=== PATIENT | male | born 1965 | race Caucasian/White ===

== ENCOUNTER 2017-10-28 09:17 | Emergency (ER) | payer OTHER ==
[2017-10-28 09:26] VITALS: BP 134/77; PULSE 93; RESP 17; TEMP 97.4
[2017-10-28] MEDS ORDERED: PROPARACAINE 0.5% OPHTH DROPS 15 ML BTL BOTH EYES STA (09:35)
[2017-10-28] MEDS ORDERED: TOBRAMYCIN 0.3% OPHTH OINT 3.5 GM TUBE BOTH EYES STA (09:42)
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
== END 2017-10-28 10:08 | disposition home or self-care (01) ==
LOC: EC 09:17
DX: H10.89 Other conjunctivitis (principal); F17.200 Nicotine dependence, unspecified, uncomplicated; Z88.0 Allergy status to penicillin
CPT/HCPCS: 99282

== ENCOUNTER 2021-03-03 | Emergency (ER) | payer OTHER ==
--- NOTE | 2021-03-03 20:06 | ED ---
Abdominal Pain HPI - General Chief Complaint: Abdominal Pain Stated Complaint: poss hernia Time Seen by Provider: 03/03/21 19:08 Source: patient Mode of arrival: ambulatory Limitations: no limitations - History of Present Illness Initial Comments: Patient is a 86-year-old male presenting to the emergency Department with complaints of a possible hernia. Patient states his granddaughter was playing with his belly today when he noticed a bulge in his umbilical area. She states it is painful when he pushes on it. He was concerned for possible hernia. He states he just noticed this a few hours prior to arrival. He denies any other abdominal pain, no nausea or vomiting, no fevers or chills. He denies any abdominal surgeries in the past. He states it does seem to go back and when he pushes on it. He has no further complaints at this time. - Related Data Home Medications Medication Instructions Recorded Confirmed Acetaminophen/Pamabrom [Midol 1 tab PO DAILY PRN 03/03/21 03/03/21 Caplet] Allergies Allergy/AdvReac Type Severity Reaction Status Date / Time Penicillins Allergy Rash/Hives Verified 03/03/21 19:51 Review of Systems ROS Statement: Those systems with pertinent positive or pertinent negative responses have been documented in the HPI. ROS Other: All systems not noted in ROS Statement are negative. Past Medical History Past Medical History: No Reported History Additional Past Medical History / Comment(s): chronic pain History of Any Multi-Drug Resistant Organisms: None Reported Past Surgical History: No Surgical Hx Reported Additional Past Surgical History / Comment(s): multiple, pt will not list Past Psychological History: No Psychological Hx Reported Smoking Status: Current every day smoker Past Alcohol Use History: None Reported Past Drug Use History: None Reported General Exam - General Exam Comments Initial Comments: GENERAL: Patient is well-developed and well-nourished. Patient is nontoxic and in no acute distress. HEAD: Atraumatic, normocephalic. EYES: Pupils equal round and reactive to light, extraocular movements intact, sclera anicteric, conjunctiva are normal. Eyelids were unremarkable. ENT: TMs normal, nares patent, oropharynx clear without exudates. Moist mucous membranes. NECK: Normal range of motion, supple without lymphadenopathy or JVD. LUNGS: Unlabored respirations. Breath sounds clear to auscultation bilaterally and equal. No wheezes rales or rhonchi. HEART: Regular rate and rhythm without murmurs, rubs or gallops. ABDOMEN: Soft, nontender, normoactive bowel sounds. No guarding, no rebound. No masses appreciated. Patient does seem to have a very small umbilical hernia, it is easily reducible. Some mild pain when it is reduced, no other abdominal pain. : Deferred MUSCULOSKELETAL: Normal extremities with adequate strength and normal range of motion, no pitting or edema. No clubbing or cyanosis. NEUROLOGICAL: Patient is alert and oriented x 3. Motor and sensory are also intact. Cranial nerves II through XII grossly intact. Symmetrical smile. Normal speech, normal gait. PSYCH: Normal mood, normal affect. SKIN: Warm, Dry, normal turgor, no rashes or lesions noted. Limitations: no limitations Course Vital Signs 03/03/21 18:43 Temperature 97.8 F Pulse Rate 85 Respiratory 18 Rate Blood Pressure 132/84 O2 Sat by Pulse 96 Oximetry Medical Decision Making - Medical Decision Making Patient is a 56-year-old male presenting with a very small umbilical hernia. He noticed it today. It is easily reducible, no other abdominal pain, no fevers or chills. I discussed with patient that this is a small umbilical hernia, we'll give him surgical consult. He is stable for discharge. Return parameters were discussed with the patient he verbalizes understanding. Case discussed with Dr. Merida. Disposition Clinical Impression: Umbilical hernia Disposition: HOME SELF-CARE Condition: Stable Instructions (If sedation given, give patient instructions): Umbilical Hernia (ED) Additional Instructions: Please return to the Emergency Department if symptoms worsen or any other concerns. Recommend following up with surgeon as discussed. Is patient prescribed a controlled substance at d/c from ED?: No Referrals: Ofe Hendrickson MD [Primary Care Provider] - 1-2 days Duglas Palma MD [STAFF PHYSICIAN] - 1-2 days Time of Disposition: 20:06
== END 2021-03-03 20:35 | disposition home or self-care (01) ==
CPT/HCPCS: 99283

== ENCOUNTER 2023-01-21 19:22 | Emergency (ER) | payer OTHER ==
[2023-01-21] MEDS ORDERED: ACETAMINOPHEN TAB 500 MG TAB PO STA (19:41)
--- NOTE | 2023-01-21 20:02 | XR ---
EXAMINATION TYPE: XR forearm RT DATE OF EXAM: 01/21/2023 COMPARISON: NONE HISTORY: Pain Two views of the forearm demonstrate that the osseous structures appear to be intact and the joint sp aces appear to be preserved. There is no acute fracture or dislocation. IMPRESSION: 1. No acute fracture or dislocation
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
[2023-01-21 20:50] VITALS: BP 149/83; PULSE 85; RESP 14; TEMP 97.9
== END 2023-01-21 20:54 | disposition home or self-care (01) ==
LOC: EC 19:22
DX: S00.83XA Contusion of other part of head, initial encounter (principal); S50.11XA Contusion of right forearm, initial encounter; F17.200 Nicotine dependence, unspecified, uncomplicated; Z88.0 Allergy status to penicillin; Y04.8XXA Assault by other bodily force, initial encounter
CPT/HCPCS: 70450; 70486; 72125; 99284

== ENCOUNTER 2024-01-17 10:30 | Emergency (ER) | payer OTHER ==
[2024-01-17 10:44] VITALS: RESP 16
--- NOTE | 2024-01-17 10:50 | ED ---
Upper Extremity HPI - General Chief Complaint: Extremity Injury, Upper Stated Complaint: shoulder pain Time Seen by Provider: 01/17/24 10:46 Source: patient, family, RN notes reviewed Mode of arrival: ambulatory Limitations: no limitations - History of Present Illness Initial Comments: Patient is a 58-year-old male presenting to the ER with chief complaint of bilateral shoulder pain. Patient states 10 years ago he had a cortisone injection into his left shoulder which helped with the pain. He states he is unable to follow-up with As they have a wait list of 3 months. He reports for the past 3 months he has been having increase in left shoulder pain with radiation to the right. Denies any known injuries. He does state he pushes a broom at work which is a repetitive motion which makes the pain worse. Denies any radiation of pain down his arm, paresthesias, weakness. He states he is having difficulty opening up his truck door due to the pain. He has been taking [id number] ibuprofen with mild relief. Denies any neck pain, fevers, chills, shortness of breath, chest pain, abdominal pain, peripheral edema. - Related Data Home Medications Medication Instructions Recorded Confirmed Acetaminophen/Pamabrom [Midol 1 tab PO DAILY PRN 03/03/21 03/03/21 Caplet] Previous Rx's Medication Instructions Recorded Ibuprofen [Motrin] 600 mg PO Q8HR PRN #30 tab 01/21/23 predniSONE 50 mg PO DAILY #5 tab 01/17/24 Allergies Allergy/AdvReac Type Severity Reaction Status Date / Time Penicillins Allergy Rash/Hives Verified 01/21/23 19:31 Review of Systems ROS Statement: Those systems with pertinent positive or pertinent negative responses have been documented in the HPI. ROS Other: All systems not noted in ROS Statement are negative. Past Medical History Past Medical History: No Reported History Additional Past Medical History / Comment(s): chronic pain History of Any Multi-Drug Resistant Organisms: None Reported Past Surgical History: No Surgical Hx Reported Additional Past Surgical History / Comment(s): multiple, pt will not list Past Psychological History: No Psychological Hx Reported Smoking Status: Current every day smoker Past Alcohol Use History: None Reported Past Drug Use History: None Reported General Exam Limitations: no limitations General appearance: alert, in no apparent distress Head exam: Present: atraumatic, normocephalic, normal inspection Eye exam: Present: normal appearance, PERRL, EOMI. Absent: scleral icterus, conjunctival injection, periorbital swelling Neck exam: Present: normal inspection. Absent: tenderness, meningismus, lymphadenopathy Respiratory exam: Present: normal lung sounds bilaterally. Absent: respiratory distress, wheezes, rales, rhonchi, stridor Cardiovascular Exam: Present: regular rate, normal rhythm, normal heart sounds. Absent: systolic murmur, diastolic murmur, rubs, gallop, clicks Extremities exam: Present: tenderness (no focal bony tenderness. tenderness to deltoid muscle), other (Limited passive left shoulder flexion to 45 degrees. Right shoulder passive flexion 90 degrees. 2+ radial pulse bilaterally. senation intact equal residential assistant strength.) Neurological exam: Present: alert, oriented X3, CN II-XII intact Psychiatric exam: Present: normal affect, normal mood Skin exam: Present: warm, dry, intact, normal color. Absent: rash Course Vital Signs 01/17/24 10:32 Temperature 97.9 F Pulse Rate 78 Respiratory 16 Rate Blood Pressure 150/83 O2 Sat by Pulse 98 Oximetry Medical Decision Making - Medical Decision Making Was pt. sent in by a medical professional or institution (, PA, MUSICIAN INSTRUMENTAL, urgent care, hospital, or half-way...) When possible be specific @ -No Did you speak to anyone other than the patient for history (EMS, parent, family, police, friend...)? What history was obtained from this source @ -No Did you review nursing and triage notes (agree or disagree)? Why? @ -I reviewed and agree with nursing and triage notes Were old charts reviewed (outside hosp., previous admission, EMS record, old EKG, old radiological studies, urgent care reports/EKG's, half-way records)? Report findings @ -No old charts were reviewed Differential Diagnosis (chest pain, altered mental status, abdominal pain women, abdominal pain men, vaginal bleeding, weakness, fever, dyspnea, syncope, headache, dizziness, GI bleed, back pain, seizure, CVA, palpatations, mental health, musculoskeletal)? @ -Differential Musculoskeletal: Muscular strain, contusion, ligament sprain, fracture, arthritis, septic arthritis, bursitis, cellulitis, muscle spasm, nerve compression, DVT, arterial occlusion, herpes zoster, electrolyte abnormality, tumor.... This is not meant to be in all inclusive list EKG interpreted by me (3pts min.). @ -None X-rays interpreted by me (1pt min.). @ -Bilateral shoulder x-rays interpreted by me negative for acute osseous process. CT interpreted by me (1pt min.). @ -None done U/S interpreted by me (1pt. min.). @ -None done What testing was considered but not performed or refused? (CT, X-rays, U/S, labs)? Why? @ -None What meds were considered but not given or refused? Why? @ -None Did you discuss the management of the patient with other professionals (professionals i.e. Dr., PA, MUSICIAN INSTRUMENTAL, lab, RT, psych nurse, perinatal social worker, battery wrecker operator, teacher, finance officer, immigration case manager)? Give summary @ -No Was smoking cessation discussed for >3mins.? @ -No Was critical care preformed (if so, how long)? @ -No Were there social determinants of health that impacted care today? How? (Homelessness, low income, unemployed, alcoholism, drug addiction, transportation, low edu. Level, literacy, decrease access to med. care, assisted, rehab)? @ -No Was there de-escalation of care discussed even if they declined (Discuss DNR or withdrawal of care, Hospice)? DNR status @ -No What co-morbidities impacted this encounter? (DM, HTN, Smoking, COPD, CAD, Cancer, CVA, ARF, Chemo, Hep., AIDS, mental health diagnosis, sleep apnea, morbid obesity)? @ -None Was patient admitted / discharged? Hospital course, mention meds given and route, prescriptions, significant lab abnormalities, going to OR and other pertinent info. @ -Discharge. Patient is a 58-year-old male presented to the ER with chief complaint of bilateral shoulder pain. History and physical exam completed. Vitals stable. Patient no signs of acute distress and nontoxic-appearing. Bilateral upper extremities neurovascularly intact. Limited passive range of motion of bilateral shoulders. X-rays obtained negative for acute process. Results discussed with patient, all questions answered. Advise close follow-up with orthopedics. Referral given. Prednisone prescribed. Advise continue motion of shoulders as tolerated. Return parameters discussed. Patient discharged in stable condition follow-up PCP/orthopedics. Patient verbally expressed understanding and agreement with care plan. Case discussed with ED attending, Dr. Clement. Undiagnosed new problem with uncertain prognosis? @ -No Drug Therapy requiring intensive monitoring for toxicity (Heparin, Nitro, Insulin, Cardizem)? @ -No Were any procedures done? @ -No Diagnosis/symptom? @ -Adhesive capsulitis Acute, or Chronic, or Acute on Chronic? @ -Acute Uncomplicated (without systemic symptoms) or Complicated (systemic symptoms)? @ -Uncomplicated Side effects of treatment? @ -No Exacerbation, Progression, or Severe Exacerbation? @ -No Poses a threat to life or bodily function? How? (Chest pain, [place], [place], pneumonia, PE, COPD, DKA, ARF, appy, cholecystitis, CVA, Diverticulitis, Homicidal, Suicidal, threat to staff... and all critical care pts) @ -No - Radiology Data Radiology results: report reviewed, image reviewed Disposition Clinical Impression: Adhesive capsulitis Disposition: HOME SELF-CARE Condition: Stable Instructions (If sedation given, give patient instructions): Adhesive Capsulitis (ED) Additional Instructions: Please follow-up with orthopedics. Continue movement as tolerated. May take [id number] Tylenol and Motrin for symptom control. Return to the ER for any new or worsening concerns. Prescriptions: predniSONE 50 mg PO DAILY #5 tab Is patient prescribed a controlled substance at d/c from ED?: No Referrals: Ofe Hendrickson MD [Primary Care Provider] - 1-2 days Prasad Ramon DO [Doctor of Osteopathic Medicine] - 1-2 days Time of Disposition: 11:35
--- NOTE | 2024-01-17 11:25 | XR ---
EXAMINATION TYPE: XR shoulder complete BILAT DATE OF EXAM: 01/17/2024 11:08 AM CLINICAL INDICATION:Male, 58 years old with history of pain; COMPARISON: None TECHNIQUE: XR shoulder complete BILAT; examined in AP, internally rotated and scapular Y projections. FINDINGS: No evidence of acute osseous pathology, joint dislocation, or soft tissue swelling. The remaining po rtions of the visualized chest are unremarkable. Minimal degeneration changes of the acromion, dista l clavicle with osteophyte formation bilaterally. There is osteophyte formation of the glenoid and hu meral head. There is joint space narrowing of glenohumeral joint IMPRESSION: No acute osseous pathology. Minimal osteoporosis changes of the shoulders.
[2024-01-17 12:07] VITALS: BP 142/86; PULSE 71; TEMP 98
== END 2024-01-17 11:52 | disposition home or self-care (01) ==
LOC: EC 10:30
DX: M75.02 Adhesive capsulitis of left shoulder (principal); M75.01 Adhesive capsulitis of right shoulder; F17.200 Nicotine dependence, unspecified, uncomplicated; Z88.0 Allergy status to penicillin
CPT/HCPCS: 99283

== ENCOUNTER 2024-07-17 18:15 | Emergency (ER) | payer OTHER ==
[2024-07-17] MEDS: BENZOCAINE SPRAY 1 CAN MUCOUS MEM STA (19:35)
[2024-07-17] MEDS: LIDOCAINE VISCOUS 2% 15 ML CUP MUCOUS MEM ONE (19:35)
[2024-07-17] MEDS: LIDOCAINE 1%-EPI 1:100,000 20 ML VIAL SQ STA (19:35)
[2024-07-17 20:22] LABS: Basophils # (A) 0.1 k/uL (0-0.2); Basophils % (A) 1 %; Eosinophils # (A) 0.2 k/uL (0-0.7); Eosinophils % (A) 2 %; HCT 45.2 % (39.0-53.0); HGB 14.6 gm/dL (13.0-17.5); Lymphocytes # (A) 3.7 k/uL (1.0-4.8); Lymphocytes % (A) 46 %; MCHC 32.4 g/dL (31.0-37.0); MCV 95.7 fL (80.0-100.0); Mean Platelet Volume 6.8; Monocytes # (A) 0.4 k/uL (0-1.0); Monocytes % (A) 6 %; Neutrophils # (A) 3.5 k/uL (1.3-7.7); Neutrophils % (A) 43 %; Platelet Count 377 k/uL (150-450); RBC 4.72 m/uL (4.30-5.90); RDW 12.3 % (11.5-15.5); WBC 8.1 k/uL (3.8-10.6)
--- NOTE | 2024-07-17 20:37 | CT ---
EXAMINATION TYPE: CT soft tissue neck w con DATE OF EXAM: 07/17/2024 COMPARISON: 01/21/2023 HISTORY: RT TONSIL MASS CT DLP: 260.3 mGycm CONTRAST: Patient injected with 100 ml mL of Isovue 370. TECHNIQUE: Axial images at 3 mm thick sections. Reconstructed images in the coronal plane and sagitt al plane are reviewed. FINDINGS: Limited CT sections are obtained the lung apices. Emphysematous changes are present. CT neck: The torus tubarius and fossa of Rosenmuller are normal. Foundry Molder spaces are normal. Ther e is opacification of the right maxillary sinus. There is a large left tonsillar mass estimated at 2.7 x 2.9 cm. Additional prominences to the right t onsillar pillar. Upper hypopharynx is filled. There may be some fluid collection in the right submandibular region. Blocked salivary duct can be co nsidered. Somewhat similar hypodensity is within the enlarged left submandibular gland. Parotid glands appear normal and symmetrical. Parapharyngeal spaces appear normal carotid sheath and jugulodigastric regions appear within normal limits. There are multiple small lymph nodes present mor e so on the left than the right No suspicious adenopathy is evident. Vocal cord level appear symmetrical. Thyroid as visualized is normal. Osseous structures are normal. IMPRESSION: 1. Large mass is predominantly within the left tonsillar pillar but also present on the right filling the hypopharynx and oropharynx. 2. Multiple bilateral small lymph nodes. Enlarged lymphadenopathy is not identified. [facility], Workstation: [facility], 07/17/2024 8:34 PM
[2024-07-17 20:38] LABS: ALT 13 U/L (4-49); AST 21 U/L (17-59); African American GFR (CKD) >90 (>60 ml/min/1.73 sqM); Albumin 4.2 g/dL (3.5-5.0); Alkaline Phosphatase 50 U/L (38-126); Anion Gap 7 mmol/L; Blood Urea Nitrogen 15 mg/dL (9-20); Calcium 9.6 mg/dL (8.4-10.2); Carbon Dioxide 22 mmol/L (22-30); Chloride 107 mmol/L (98-107); Glucose 92 mg/dL (74-99); Non-African American GFR(CKD) >90 (>60 ml/min/1.73 sqM); Potassium 4.4 mmol/L (3.5-5.1); Sodium 136 mmol/L (137-145); Total Bilirubin 0.9 mg/dL (0.2-1.3)
--- NOTE | 2024-07-17 21:04 | ED ---
ENT HPI - General Chief complaint: ENT Stated complaint: sore throat/swelling Time Seen by Provider: 07/17/24 18:30 Source: patient Mode of arrival: ambulatory Limitations: no limitations - History of Present Illness Initial comments: 59-year-old male presenting with chief complaint of painful mass to the throat. Patient over the last 5 days has had increasing irritation to a large left-sided mass at the back of her throat. He does have pain and difficulty with swallowing, he still able to drink water. He does report some increased difficulty breathing. His voice is muffled. He does have to spit out his secretions at times. He is a current every day smoker. No fever. - Related Data Home Medications Medication Instructions Recorded Confirmed Acetaminophen/Pamabrom [Midol 1 tab PO DAILY PRN 03/03/21 03/03/21 Caplet] Previous Rx's Medication Instructions Recorded Ibuprofen [Motrin] 600 mg PO Q8HR PRN #30 tab 01/21/23 predniSONE 50 mg PO DAILY #5 tab 01/17/24 Allergies Allergy/AdvReac Type Severity Reaction Status Date / Time Penicillins Allergy Rash/Hives Verified 01/21/23 19:31 Review of Systems ROS Statement: Those systems with pertinent positive or pertinent negative responses have been documented in the HPI. ROS Other: All systems not noted in ROS Statement are negative. Past Medical History Past Medical History: No Reported History Additional Past Medical History / Comment(s): chronic pain History of Any Multi-Drug Resistant Organisms: None Reported Past Surgical History: No Surgical Hx Reported Additional Past Surgical History / Comment(s): multiple, pt will not list Past Psychological History: No Psychological Hx Reported Smoking Status: Current every day smoker Past Alcohol Use History: None Reported Past Drug Use History: None Reported General Exam Limitations: no limitations General appearance: alert, in no apparent distress Head exam: Present: atraumatic, normocephalic, normal inspection Eye exam: Present: normal appearance, EOMI Expanded Throat exam: L peritonsillar mass Respiratory exam: Absent: respiratory distress, stridor Cardiovascular Exam: Present: regular rate Neurological exam: Present: alert, oriented X3, CN II-XII intact Psychiatric exam: Present: normal affect, normal mood Skin exam: Present: warm, dry Course Vital Signs 07/17/24 18:21 Temperature 97.9 F Pulse Rate 78 Respiratory 18 Rate Blood Pressure 144/82 O2 Sat by Pulse 98 Oximetry Medical Decision Making - Medical Decision Making Was pt. sent in by a medical professional or institution (, JULIO, SERVICE OR WORK DISPATCHER, urgent care, hospital, or senior living...) When possible be specific @ -No Did you speak to anyone other than the patient for history (EMS, parent, family, police, friend...)? What history was obtained from this source @ -No Did you review nursing and triage notes (agree or disagree)? Why? @ -I reviewed and agree with nursing and triage notes Were old charts reviewed (outside hosp., previous admission, EMS record, old EKG, old radiological studies, urgent care reports/EKG's, senior living records)? Report findings @ -No old charts were reviewed Differential Diagnosis (chest pain, altered mental status, abdominal pain women, abdominal pain men, vaginal bleeding, weakness, fever, dyspnea, syncope, headache, dizziness, GI bleed, back pain, seizure, CVA, palpatations, mental health, musculoskeletal)? @ -Differential includes peritonsillar abscess, tonsillar mass, this is not an all-inclusive list EKG interpreted by me (3pts min.). @ -As above X-rays interpreted by me (1pt min.). @ -None done CT interpreted by me (1pt min.). @ -Large mass is predominantly within the left tonsillar pillar but also present on the right filling the hypopharynx and oropharynx. Multiple bilateral small lymph nodes. Enlarged lymphadenopathy is not identified U/S interpreted by me (1pt. min.). @ -None done What testing was considered but not performed or refused? (CT, X-rays, U/S, labs)? Why? @ -None What meds were considered but not given or refused? Why? @ -None Did you discuss the management of the patient with other professionals (professionals i.e. , JULIO, SERVICE OR WORK DISPATCHER, lab, RT, psych nurse, social service assistant, account support associate, teacher, fare enforcement officer, case folder)? Give summary @ -I spoke with Dr. Perez who recommends transfer for expedited ENT workup I spoke with hospitalist Dr. Arias at [facility] for acceptance of transfer Was smoking cessation discussed for >3mins.? @ -No Was critical care preformed (if so, how long)? @ -No Were there social determinants of health that impacted care today? How? (Homelessness, low income, unemployed, alcoholism, drug addiction, transportation, low edu. Level, literacy, decrease access to med. care, long term, rehab)? @ -No Was there de-escalation of care discussed even if they declined (Discuss DNR or withdrawal of care, Hospice)? DNR status @ -No What co-morbidities impacted this encounter? (DM, HTN, Smoking, COPD, CAD, Cancer, CVA, ARF, Chemo, Hep., AIDS, mental health diagnosis, sleep apnea, morbid obesity)? @ -Smoking Was patient admitted / discharged? Hospital course, mention meds given and route, prescriptions, significant lab abnormalities, going to OR and other pertinent info. @ -59-year-old male presenting chief complaint of pain and difficulty swallowing. He has a large left-sided tonsillar mass. He is a daily smoker. On CT there is a large mass to the left tonsillar pillar extends into the hypopharynx and oropharynx. I spoke with ENT Dr. Perez. And he is in her area do not manage this condition and he believe that the patient needs an expedited workup, this may entail radiation with placement of a trach he belie ves that the patient should be transferred to [facility]. Spoke with [facility] accepts transfer. Patient was given Decadron 10 mg. CBC CMP are essentially unremarkable. Patient is educated on today's findings and treatment plan, he is in agreement. I discussed this case with my attending Dr. Morris Undiagnosed new problem with uncertain prognosis? @ -No Drug Therapy requiring intensive monitoring for toxicity (Heparin, Nitro, Insulin, Cardizem)? @ -No Were any procedures done? @ -No Diagnosis/symptom? @ -Tonsillar mass Acute, or Chronic, or Acute on Chronic? @ -Acute Uncomplicated (without systemic symptoms) or Complicated (systemic symptoms)? @ -Complicated Side effects of treatment? @ -No Exacerbation, Progression, or Severe Exacerbation? @ -No Poses a threat to life or bodily function? How? (Chest pain, [place], [place], pneumonia, PE, COPD, DKA, ARF, appy, cholecystitis, CVA, Diverticulitis, Homicidal, Suicidal, threat to staff... and all critical care pts) @ -Yes - Lab Data Result diagrams: 07/17/24 20:13 07/17/24 20:13 Lab Results 07/17/24 07/17/24 07/17/24 Range/Units 20:13 20:13 20:13 WBC 8.1 (3.8-10.6) k/uL RBC 4.72 (4.30-5.90) m/uL Hgb 14.6 (13.0-17.5) gm/dL Hct 45.2 (39.0-53.0) % MCV 95.7 (80.0-100.0) fL MCH 31.0 (25.0-35.0) pg MCHC 32.4 (31.0-37.0) g/dL RDW 12.3 (11.5-15.5) % Plt Count 377 (150-450) k/uL MPV 6.8 Neutrophils % 43 % Lymphocytes % 46 % Monocytes % 6 % Eosinophils % 2 % Basophils % 1 % Neutrophils # 3.5 (1.3-7.7) k/uL Lymphocytes # 3.7 (1.0-4.8) k/uL Monocytes # 0.4 (0-1.0) k/uL Eosinophils # 0.2 (0-0.7) k/uL Basophils # 0.1 (0-0.2) k/uL Sodium 136 L (137-145) mmol/L Potassium 4.4 (3.5-5.1) mmol/L Chloride 107 (98-107) mmol/L Carbon Dioxide 22 (22-30) mmol/L Anion Gap 7 mmol/L BUN 15 (9-20) mg/dL Creatinine 0.86 (0.66-1.25) mg/dL Est GFR (CKD-EPI)AfAm >90 (>60 ml/min/1.73 sqM) Est GFR (CKD-EPI)NonAf >90 (>60 ml/min/1.73 sqM) Glucose 92 (74-99) mg/dL Plasma Lactic Acid Geovanni 0.7 (0.7-2.0) mmol/L Calcium 9.6 (8.4-10.2) mg/dL Total Bilirubin 0.9 (0.2-1.3) mg/dL AST 21 (17-59) U/L ALT 13 (4-49) U/L Alkaline Phosphatase 50 (38-126) U/L Total Protein 7.0 (6.3-8.2) g/dL Albumin 4.2 (3.5-5.0) g/dL Disposition Clinical Impression: Tonsillar mass Disposition: OTHER INSTITUTION NOT DEFINED Condition: Stable Referrals: Ofe Hendrickson MD [Primary Care Provider] - 1-2 days - Out of Hospital Transfer - Req. Specs Out of Hospital Transfer - Requested Specifics: Other Emergency Center ([facility])
[2024-07-17] MEDS: DEXAMETHASONE SOD PHOSPHATE 10 MG/ML 1 ML VIAL IVP STA (21:07)
--- NOTE | 2024-07-18 11:35 | P.CONS ---
History of Present Illness - Reason for Consult Consult date: 07/18/24 Medical Management - History of Present Illness History of Presenting Illness: Patient is a pleasant 59-year-old male with a past medical history of nicotine dependence. He presented to the emergency department on 07/17/2024 with a chief complaint of sore throat and swelling. Patient reports symptoms began , 07/12/2024 and initially just started out with a sore throat. Patient reports both he and his looked in his throat and only had a little redness and nothing more. Patient reports increasing pain and swelling over the past 5 days and noticed a large mass to his left tonsil/side of throat so he came to the emergency department for evaluation. Upon arrival to our facility vital signs revealed blood pressure 144/82, heart rate 78, respiratory rate 18, temp 97.9 F, and SpO2 of 98% on room air. Labs were completed and reviewed. CBC and BMP were unremarkable. CT soft tissue neck with contrast was completed showing a large left tonsillar mass estimated at 2.7 x 2.9 cm predominantly within the left tonsillar pillar but also extending on the right filling the hypopharynx and oropharynx with multiple bilateral small lymph nodes present. ENT was con sulted by ED physician, recommending transfer to tertiary center for higher level of care. We were consulted on 07/18/2024 for medical management while patient awaiting transfer. Patient seen and fully evaluated in the emergency department, he is currently requesting a diet to be ordered. Patient denies having any difficulty swallowing or clearing secretions. Patient does report having excess secretions and does spit up some phlegm into send at bedside. He reports having a sore throat with irritation and reports feeling raw, but denies having any cough, nasal congestion or drainage, fevers, chills, chest pain, palpitations, shortness of breath or any other complaints. Patient denies known exposure to strep. Review of systems: Pertinent positives and negatives as discussed in HPI, a complete review of systems was performed and all other systems are negative. Physical exam: Vital signs reviewed and stable. Currently blood pressure 125/75, heart rate 78, respiratory rate 17, temp 97.3 F, and SpO2 of 97% on room air. General: Nontoxic, no distress and appears stated age. Derm: Skin warm and dry, normal coloration for ethnicity. Head: Atraumatic, normocephalic and symmetric. Eyes: EOM's intact, no lid lag, and anicteric sclera Mouth: no lip lesions, mucus membranes moist. Large peritonsillar mass/abscess left tonsil. Cardiovascular: regular rate and rhythm with normal S1S2, no murmur, positive posterior tibial pulses bilaterally, and cap refill < 2 seconds. Lungs: Respirations even, regular, and unlabored on room air. Lungs CTA bilaterally, no rhonchi, no rales, no wheezing, and no accessory muscle usage. Abdominal: soft, nontender to palpation, no guarding, no appreciable organomegaly Ext: ROM intact. No gross muscle atrophy, no edema, no contractures Neuro: Speech clear, face symmetrical and CN II-XII grossly intact with no noted focal neuro deficits Psych: Alert and oriented to person, place, time, and situation. Appropriate and pleasant affect. Assessment and Plan of Care: Large peritonsillar abscess/mass -CT soft tissue neck with contrast was completed showing a large left tonsillar mass estimated at 2.7 x 2.9 cm predominantly within the left tonsillar pillar but also extending on the right filling the hypopharynx and oropharynx with multiple bilateral small lymph nodes present. -Order placed for rapid strep -Will start patient empirically on antibiotics pending results, patient has penicillin allergy will start patient on Rocephin 2 g daily. -Patient started on Decadron 6 mg IVP daily. -Patient tolerating clear liquids will advance to full liquid diet. -Aspiration precautions placed. Nicotine dependence -Patient reports smoking half a pack of cigarettes daily, recommended smoking cessation and offered patient nicotine patch. Patient declined nicotine patch at this time. Data and imaging reviewed: -As stated above in HPI Thank you for allowing us to participate in the care of this pleasant patient. Do not hesitate to contact us with questions. Someone can be reached from the [facility] hospitalist group all hours of the day at [phone] or via [employer] serve. Patient was seen independently by Nurse Practitioner. This document was prepared using [employer] dictation software. Please allow for errors in weed thinner while rare they do occur. .Deniz Benjamin NP rendered care for this patient independently, reviewed the findings and plan as documented in the note above. I did not physically speak with or examine the patient on this date. Past Medical History Past Medical History: No Reported History Additional Past Medical History / Comment(s): chronic pain History of Any Multi-Drug Resistant Organisms: None Reported Past Surgical History: No Surgical Hx Reported Additional Past Surgical History / Comment(s): multiple, pt will not list Past Psychological History: No Psychological Hx Reported Smoking Status: Current every day smoker Past Alcohol Use History: None Reported Past Drug Use History: None Reported Medications and Allergies Home Medications Medication Instructions Recorded Confirmed Type No Known Home Medications 07/18/24 07/18/24 History Allergies Allergy/AdvReac Type Severity Reaction Status Date / Time Penicillins Allergy Rash/Hives Verified 07/18/24 11:03 Physical Exam Vitals: Vital Signs Temp Pulse Resp BP Pulse Ox 07/18/24 10:00 78 17 125/75 97 07/18/24 07:35 97.3 F L 80 17 116/70 96 07/18/24 06:00 65 18 113/72 97 07/18/24 00:25 76 18 116/83 98 07/17/24 18:21 97.9 F 78 18 144/82 98 Intake and Output 07/17/24 07/18/24 07/18/24 22:59 06:59 14:59 Other: Weight 83.915 kg Results CBC & Chem 7: 07/17/24 20:13 07/17/24 20:13 Labs: Abnormal Lab Results - Last 24 Hours (Table) 07/17/24 Range/Units 20:13 Sodium 136 L (137-145) mmol/L
[2024-07-18] MEDS: DEXAMETHASONE SOD PHOSPHATE 10 MG/ML 1 ML VIAL IVP SCH (12:28)
[2024-07-18 13:30] VITALS: BP 113/76; PULSE 88; RESP 18; TEMP 97.9
== END 2024-07-18 14:10 | disposition other institution (70) ==
LOC: EC 18:15
CPT/HCPCS: 36415; 70491; 80053; 83605; 85025; 87651; 96365; 96375; 96376; 99284